=== PATIENT | female | born 1990 | race Two or more races ===

== ENCOUNTER 2017-09-04 12:39 | Emergency (ER) | payer MEDICAID, OTHER ==
[~2017-09-04] VITALS: Ht 175.3 cm; Wt 98.3 kg
[2017-09-04] MEDS ORDERED: KETOROLAC 30 MG/1 ML IM ONE (14:00)
[2017-09-04] MEDS ORDERED: KETOROLAC 30 MG/1 ML ONE (14:02)
[2017-09-04 14:58] VITALS: BP 114/87
== END 2017-09-04 15:07 | disposition home or self-care (01) ==
LOC: ED 15:00
DX: M54.2 Cervicalgia (principal); M54.5 Low back pain; M79.631 Pain in right forearm; M79.651 Pain in right thigh; F32.9 Major depressive disorder, single episode, unspecified; Y04.8XXA Assault by other bodily force, initial encounter; Y93.89 Activity, other specified; Y92.098 Other place in other non-institutional residence as the place of occurrence of the external cause; Y99.8 Other external cause status
CPT/HCPCS: 70360; 93005; 93880; 96372; 99284; J1885

== ENCOUNTER 2020-06-14 11:31 | Emergency (ER) | payer OTHER ==
[~2020-06-14] VITALS: Ht 177.8 cm; Wt 95.0 kg
[2020-06-14] MEDS ORDERED: SUMATRIPTAN 6MG/0.5ML SQ ONE ×2 (12:00→12:30)
--- NOTE | 2020-06-14 12:14 | NUR ---
PT HAS CO DE LA TORRE AND BLURRED VISION STARTED THIS AM. DENIES CP OR SOB.
--- NOTE | 2020-06-14 12:39 | NUR ---
MEDICATED PER ORDERS
--- NOTE | 2020-06-14 13:08 | NUR ---
REPORT TO BÁRBARA
--- NOTE | 2020-06-14 13:23 | NUR ---
REPORT FROM KETURAH GUTIERREZ. [facility] REPORTS IMPROVEMENT IN NAUSEA AND DE LA TORRE AFTER MEDICATIONS, PAIN NOW 10/30. CHART UP FOR RECHECK, AWAITING DISPO
[2020-06-14 13:24] VITALS: BP 112/74
--- NOTE | 2020-06-14 14:04 | NUR ---
DC EDUCATION PROVIDED, PT DEMONSTRATES UNDERSTANDING. PT AMBULATED STEADILY TO DC WITH RN
== END 2020-06-14 14:05 | disposition home or self-care (01) ==
LOC: ED 12:14
DX: G43.009 Migraine without aura, not intractable, without status migrainosus (principal); H53.8 Other visual disturbances
CPT/HCPCS: 93005; 96372; 99283; J3030